=== PATIENT | female | born 1985 | race Two or more races ===

== ENCOUNTER 2023-08-16 07:44 | Emergency (ER) | payer OTHER ==
[~2023-08-16] VITALS: Ht 152.4 cm; Wt 49.4 kg
[2023-08-16] MEDS ORDERED: SINGULAIR4 M1 PO (08:35)
== END 2023-08-16 10:05 | disposition home or self-care (01) ==
LOC: ER 07:45
DX: U07.1 COVID-19 (principal); Z91.018 Allergy to other foods

== ENCOUNTER 2023-11-26 04:46 | Emergency (ER) | payer OTHER ==
[~2023-11-26] VITALS: Ht 152.4 cm; Wt 47.2 kg
[~2023-11-26 04:46] MED LIST: SINGULAIR4 M1 PO
[2023-11-26] MEDS ORDERED: CLARITIN-D 121 EACH PO (05:01)
[2023-11-26] MEDS ORDERED: ZYNCOF 20-400120 ML PO (05:04)
[2023-11-26] MEDS ORDERED: METHYLPREDNISOLONE SOD SUCC 125 MG VIAL IV STA (07:19)
[2023-11-26] MEDS ORDERED: CEFTRIAXONE SODIUM 2,000 MG VIAL IV STA (07:20)
[2023-11-26] MEDS ORDERED: IPRATROPIUM BROMIDE 0.5 MG/2.5 ML AMPUL.NEB IH SCH (07:30)
[2023-11-26] MEDS ORDERED: ALBUTEROL SULFATE 3 ML/2.5 MG AMPUL.NEB IH SCH (07:30)
[2023-11-26 08:03] LABS: HEMATOCRIT 37.6 % (36.0-45.00); MEAN CELL VOLUME 88.6 fL (80.00-100.00); MEAN CORPUSCULAR HEMOGLOBIN 30.5 pg (27.00-32.0); MEAN CORPUSCULAR HGB CONC 34.5 g/dl (32.0-36.0); PLATELET COUNT 229 K/uL (150-450); RED BLOOD COUNT 4.25 M/uL (4.00-6.00); RED CELL DISTRIBUTION WIDTH 13.2 % (11.5-14.5)
== END 2023-11-26 10:27 | disposition home or self-care (01) ==
LOC: ER 04:46
DX: J01.90 Acute sinusitis, unspecified (principal); J45.901 Unspecified asthma with (acute) exacerbation; Z20.822 Contact with and (suspected) exposure to COVID-19